=== PATIENT | female | born 1945 | race Caucasian/White ===

== ENCOUNTER 2017-03-23 19:33 | Emergency (ER) | payer MEDICARE, OTHER ==
[~2017-03-23] VITALS: Ht 154.9 cm; Wt 56.0 kg
[~2017-03-23 19:33] MED LIST: BENA40TA PO; DIAZ5 PO; IBUP400 PO; PERC5TAB12 PO
[2017-03-23 19:41] VITALS: BP 140/70; PULSE 88; RESP 22; TEMP 97.6
[2017-03-23] MEDS ORDERED: BENA5TAB PO (19:51)
[2017-03-23] MEDS ORDERED: LORA0.5T PO (19:51)
[2017-03-23] MEDS ORDERED: MORPHINE SULFATE 4 MG/ML INJ IV PUSH ONE (20:00)
[2017-03-23] MEDS ORDERED: SODIUM CHLORIDE 0.9% FLUSH 10 ML FLUSH IVF PRN (20:00)
[2017-03-23] MEDS ORDERED: ONDANSETRON HCL 4 MG/2 ML VIAL IVP ONE (20:00)
--- NOTE | 2017-03-23 20:07 | PD ---
HPI Chief Complaint: Abdominal Pain Time Seen by Provider: 19:44 Travel History International Travel<30 days: No Contact w/Intl Traveler<30days: No Traveled to known affect area: No History of Present Illness HPI 71-year-old female to the emergency department via EMS for evaluation of abdominal pain, syncopal episode, vomiting, diarrhea. Patient reports history of spastic colon, colitis. She states that when she gets stressed out, she has these syncopal episodes. This is not uncommon for her. She states that her son recently . She started having lower abdominal pain approximately 30 minutes after eating. She states that she went to the bathroom at [employer] with her family member. She states she felt like she was going to have a syncopal episode. She states that she did and her family member lowered her to the ground. She denies hitting her head. She denies any headache. No fevers or chills. No chest pain or shortness of breath. Patient reports history of hypertension, depression, anxiety. He denies any previous abdominal surgeries. She states she had 2 large bowel movements. She denies any blood in her stool. She vomited 1. Patient states that normally this happens, she gets pain medication and will feel much better. PFSH Past Medical History Anxiety: Yes Diminished Hearing: No Hypertension: Yes Immunizations Current: Yes ?: Not Menopausal: Yes Past Surgical History Neurologic Surgery: Yes (CERVICAL FUSION C4-T2) Social History Alcohol Use: No Tobacco Use: Yes (/ PPD) Substance Use: No Allergies-Medications (Allergen,Severity, Reaction): Coded Allergies: No Known Allergies (Unverified Allergy, Unknown, 03/23/17) Reported Meds & Prescriptions Reported Meds & Active Scripts Active Reported Benazepril (Benazepril HCl) 5 Mg Tab 5 Mg PO BID Lorazepam 0.5 Mg Tab 0.5 Mg PO DAILY PRN Review of Systems Except as stated in HPI: all other systems reviewed are Neg Physical Exam Narrative GENERAL: Well-nourished, well-developed female patient, afebrile SKIN: Focused skin assessment warm/dry. HEAD: Normocephalic. Atraumatic. EYES: No scleral icterus. No injection or drainage. PERRLA. NECK: Supple, trachea midline. No JVD or lymphadenopathy. CARDIOVASCULAR: Regular rate and rhythm without murmurs, gallops, or rubs. RESPIRATORY: Breath sounds equal bilaterally. No accessory muscle use. Lungs sounds are clear to auscultation. GASTROINTESTINAL: Abdomen soft and nondistended. Patient has lower abdominal tenderness to palpation. MUSCULOSKELETAL: No cyanosis, or edema. Bilateral upper and lower extremities are 5/5. All extremities are neurovascularly intact BACK: Nontender without obvious deformity. No CVA tenderness. Data Data Last Documented VS Vital Signs Date Time Temp Pulse Resp B/P (MAP) Pulse Ox O2 Delivery O2 Flow Rate FiO2 03/23/17 21:57 58 18 104/60 (75) 98 03/23/17 20:46 Room Air 03/23/17 19:41 97.6 Orders Orders Electrocardiogram (03/23/17 19:52) Complete Blood Count With Diff (03/23/17 19:52) Comprehensive Metabolic Panel (03/23/17 19:52) Magnesium (Mg) (03/23/17 19:52) Ckmb (Isoenzyme) Profile (03/23/17 19:52) Troponin I (03/23/17 19:52) Act Partial Throm Time (Ptt) (03/23/17 19:52) Prothrombin Time / Inr (Pt) (03/23/17 19:52) Urinalysis - C+S If Indicated (03/23/17 19:52) Ecg Monitoring (03/23/17 19:52) Iv Access Insert/Monitor (03/23/17 19:52) Oximetry (03/23/17 19:52) Ondansetron Inj (Zofran Inj) (03/23/17 20:00) Sodium Chloride 0.9% Flush (Ns Flush) (03/23/17 20:00) Lipase (03/23/17 19:52) Ct Abd/Pel W Iv Contrast(Rout) (03/23/17 ) Morphine Inj (Morphine Inj) (03/23/17 20:00) Cath For Specimen (03/23/17 21:39) Iohexol 350 Inj (Omnipaque 350 Inj) (03/23/17 22:41) Labs Laboratory Tests Test 03/23/17 20:00 White Blood Count 10.8 TH/MM3 Red Blood Count 3.84 MIL/MM3 Hemoglobin 11.0 GM/DL Hematocrit 33.3 % Mean Corpuscular Volume 86.8 FL Mean Corpuscular Hemoglobin 28.8 PG Mean Corpuscular Hemoglobin Concent 33.2 % Red Cell Distribution Width 13.7 % Platelet Count 177 TH/MM3 Mean Platelet Volume 10.0 FL Neutrophils (%) (Auto) 55.2 % Lymphocytes (%) (Auto) 36.5 % Monocytes (%) (Auto) 5.6 % Eosinophils (%) (Auto) 1.5 % Basophils (%) (Auto) 1.2 % Neutrophils # (Auto) 6.0 TH/MM3 Lymphocytes # (Auto) 4.0 TH/MM3 Monocytes # (Auto) 0.6 TH/MM3 Eosinophils # (Auto) 0.2 TH/MM3 Basophils # (Auto) 0.1 TH/MM3 CBC Comment DIFF FINAL Differential Comment Prothrombin Time 11.1 SEC Prothromb Time International Ratio 1.0 RATIO Activated Partial Thromboplast Time 22.0 SEC Blood Urea Nitrogen 11 MG/DL Creatinine 0.88 MG/DL Random Glucose 105 MG/DL Total Protein 5.0 GM/DL Albumin 2.7 GM/DL Calcium Level 7.5 MG/DL Magnesium Level 1.6 MG/DL Alkaline Phosphatase 54 U/L Aspartate Amino Transf (AST/SGOT) 25 U/L Alanine Aminotransferase (ALT/SGPT) 20 U/L Total Bilirubin 0.3 MG/DL Sodium Level 134 MEQ/L Potassium Level 3.2 MEQ/L Chloride Level 104 MEQ/L Carbon Dioxide Level 18.2 MEQ/L Anion Gap 12 MEQ/L Estimat Glomerular Filtration Rate 64 ML/MIN Total Creatine Kinase 88 U/L Troponin I LESS THAN 0.02 NG/ML Lipase 146 U/L MDM Medical Decision Making Medical Screen Exam Complete: Yes Emergency Medical Condition: Yes Medical Record Reviewed: Yes Interpretation(s) CT abdomen/pelvis - CONCLUSION: Abnormal descending colon with wall thickening and surrounding inflammatory change. These findings are consistent with colitis. This could be secondary to infectious, inflammatory or vascular etiologies. Differential Diagnosis Colitis versus electrolyte abnormality versus dehydration versus syncope versus diverticulitis versus UTI Narrative Course 71-year-old female presents to the emergency department for evaluation of lower abdominal pain, syncopal episode, vomiting, diarrhea. She states she has history of the same. EKG, CBC, CMP, magnesium, CK, troponin, PTT, PT/INR, UA, lipase are ordered and pending. CT abdomen/pelvis with IV contrast is ordered and pending. Patient received normal saline 2 L IV bolus prior to arrival. Patient is given Zofran 4 mg IV, Zofran 4 mg IV. EKG shows sinus rhythm, heart rate 60, no acute ST changes. CBC shows no acute abnormality. CMP shows slight hypokalemia at 3.2, no acute abnormality. Magnesium is 1.6. Lipase is 146. CK is 88. Troponin is less than 0.02. Coags show no acute abnormality. CT abdomen/pelvis shows abnormal descending colon with wall thickening and surrounding inflammatory change. These findings are consistent with colitis. This could be secondary to infectious, inflammatory or vascular etiologies. I discussed the case my attending physician, Dr. Gutierrez. Patient was discharged prescription for Flagyl, Cipro. She also be given a short-term prescription for Lortab for pain. She is instructed to follow-up with her primary care physician. She verbalizes agreement and understanding. The patient was discharged in stable condition with instructions, including return instructions and follow up instructions. Diagnosis Primary Impression: Colitis Referrals: Primary Care Physician call for appointment Patient Instructions: Colitis (ED), General Instructions Additional Instructions: Take antibiotics as directed until gone. Do not drink alcohol while on Flagyl. Take Lortab as instructed as needed for pain. Caution this can make drowsy so do not drive after taking. Follow-up with your primary care physician. Return to the emergency department for any acute worsening of symptoms. Med/Other Pt SpecificInfo: Prescription(s) given Scripts Hydrocodone-Acetaminophen (Lortab) 5-325 Mg Tab 1 TAB PO Q6H Y for PAIN, #12 TAB 0 Refills Prov: May Wright 03/23/17 Ciprofloxacin (Cipro) 500 Mg Tab 500 MG PO BID for Infection for 10 Days, #20 TAB 0 Refills Prov: May Wright 03/23/17 Metronidazole (Flagyl) 500 Mg Tab 500 MG PO TID for Infection for 10 Days, TAB 0 Refills Prov: May Wright 03/23/17 Disposition: 01 DISCHARGE HOME Condition: Stable May Wright Mar 23, 2017 20:07
[2017-03-23 20:46] VITALS: BP 125/57; PULSE 80; RESP 16; O2SAT 97
[2017-03-23 20:50] LABS: BASOPHIL # 0.1 TH/MM3 (0-0.2); BASOPHIL % 1.2 % (0.0-2.0); EOSINOPHIL # 0.2 TH/MM3 (0-0.4); EOSINOPHIL % 1.5 % (0.0-4.0); HEMATOCRIT 33.3 % (35.0-46.0); HEMO FLAGS DIFF FINAL; LYMPH % 36.5 % (9.0-44.0); MEAN CELL VOLUME 86.8 FL (80.0-100.0); MEAN CORPUSCULAR HEMOGLOBIN 28.8 PG (27.0-34.0); MEAN CORPUSCULAR HGB CONC 33.2 % (32.0-36.0); MONO % 5.6 % (0.0-8.0); NEUT % 55.2 % (16.0-70.0); PLATELET COUNT 177 TH/MM3 (150-450); RED BLOOD COUNT 3.84 MIL/MM3 (4.00-5.30); RED CELL DISTRIBUTION WIDTH 13.7 % (11.6-17.2); WHITE BLOOD COUNT 10.8 TH/MM3 (4.0-11.0)
[2017-03-23 21:00] LABS: PROTHROMBIN TIME - PATIENT 11.1 SEC (9.8-11.6)
[2017-03-23 21:21] LABS: ANION GAP 12 MEQ/L (5-15); BICARBONATE 18.2 MEQ/L (21.0-32.0); BLOOD UREA NITROGEN 11 MG/DL (7-18); CHLORIDE 104 MEQ/L (98-107); GLOMERULAR FILTRATION RATE 64 ML/MIN (>89); MAGNESIUM 1.6 MG/DL (1.5-2.5); POTASSIUM 3.2 MEQ/L (3.5-5.1); SODIUM (NA) 134 MEQ/L (136-145)
[2017-03-23 21:22] LABS: ALT (GPT) 20 U/L (10-53); AST (GOT) 25 U/L (15-37)
[2017-03-23 21:25] LABS: ALKALINE PHOSPHATASE 54 U/L (45-117); TOTAL BILIRUBIN ADULT 0.3 MG/DL (0.2-1.0)
[2017-03-23 21:28] LABS: CREATINE KINASE 88 U/L (26-192)
[2017-03-23 21:57] VITALS: BP 104/60; PULSE 58; RESP 18; O2SAT 98
--- NOTE | 2017-03-23 21:58 | PD ---
Physical Exam Date Seen by Provider: Mar 23, 2017 Time Seen by Provider: 21:45 Narrative This patient presents with abdominal pain. Data Data Last Documented VS Vital Signs Date Time Temp Pulse Resp B/P (MAP) Pulse Ox O2 Delivery O2 Flow Rate FiO2 03/23/17 20:46 97 Room Air 03/23/17 20:46 80 16 125/57 (79) 03/23/17 19:41 97.6 Orders Orders Electrocardiogram (03/23/17 19:52) Complete Blood Count With Diff (03/23/17 19:52) Comprehensive Metabolic Panel (03/23/17 19:52) Magnesium (Mg) (03/23/17 19:52) Ckmb (Isoenzyme) Profile (03/23/17 19:52) Troponin I (03/23/17:52) Act Partial Throm Time (Ptt) (03/23/17 19:52) Prothrombin Time / Inr (Pt) (03/23/17 19:52) Urinalysis - C+S If Indicated (03/23/17 19:52) Ecg Monitoring (03/23/17 19:52) Iv Access Insert/Monitor (03/23/17 19:52) Oximetry (03/23/17 19:52) Ondansetron Inj (Zofran Inj) (03/23/17 20:00) Sodium Chloride 0.9% Flush (Ns Flush) (03/23/17 20:00) Lipase (03/23/17 19:52) Ct Abd/Pel W Iv Contrast(Rout) (03/23/17 ) Morphine Inj (Morphine Inj) (03/23/17 20:00) Cath For Specimen (03/23/17 21:39) Labs Laboratory Tests Test 03/23/17 20:00 White Blood Count 10.8 TH/MM3 Red Blood Count 3.84 MIL/MM3 Hemoglobin 11.0 GM/DL Hematocrit 33.3 % Mean Corpuscular Volume 86.8 FL Mean Corpuscular Hemoglobin 28.8 PG Mean Corpuscular Hemoglobin Concent 33.2 % Red Cell Distribution Width 13.7 % Platelet Count 177 TH/MM3 Mean Platelet Volume 10.0 FL Neutrophils (%) (Auto) 55.2 % Lymphocytes (%) (Auto) 36.5 % Monocytes (%) (Auto) 5.6 % Eosinophils (%) (Auto) 1.5 % Basophils (%) (Auto) 1.2 % Neutrophils # (Auto) 6.0 TH/MM3 Lymphocytes # (Auto) 4.0 TH/MM3 Monocytes # (Auto) 0.6 TH/MM3 Eosinophils # (Auto) 0.2 TH/MM3 Basophils # (Auto) 0.1 TH/MM3 CBC Comment DIFF FINAL Differential Comment Prothrombin Time 11.1 SEC Prothromb Time International Ratio 1.0 RATIO Activated Partial Thromboplast Time 22.0 SEC Blood Urea Nitrogen 11 MG/DL Creatinine 0.88 MG/DL Random Glucose 105 MG/DL Total Protein 5.0 GM/DL Albumin 2.7 GM/DL Calcium Level 7.5 MG/DL Magnesium Level 1.6 MG/DL Alkaline Phosphatase 54 U/L Aspartate Amino Transf (AST/SGOT) 25 U/L Alanine Aminotransferase (ALT/SGPT) 20 U/L Total Bilirubin 0.3 MG/DL Sodium Level 134 MEQ/L Potassium Level 3.2 MEQ/L Chloride Level 104 MEQ/L Carbon Dioxide Level 18.2 MEQ/L Anion Gap 12 MEQ/L Estimat Glomerular Filtration Rate 64 ML/MIN Total Creatine Kinase 88 U/L Troponin I LESS THAN 0.02 NG/ML Lipase 146 U/L MDM Supervised Visit with [facility]: Yes Narrative Course I, Dr. Gutierrez, have reviewed the advance practice practitioner's documentation and am in agreement, met with the patient face to face, made the diagnosis, and the medical decision making was done by me. *My assessment and Findings: Abdomen is soft and nontender. Please see May Wright NP's note for laboratory and radiology results, final diagnosis and disposition Melanie Gutierrez MD Mar 23, 2017 21:58
[2017-03-23] MEDS ORDERED: IOHEXOL 350 MG/ML 10 ML VIAL (for RAD DIAG) IVCONTRAST ONE (22:41)
--- NOTE | 2017-03-23 22:51 | RADRPT ---
EXAM DATE/TIME: 03/23/2017 22:37 [facility] COMPARISON: No previous studies available for comparison. INDICATIONS : Abdominal pain and nausea. IV CONTRAST: 71 cc Omnipaque 350 (iohexol) IV ORAL CONTRAST: No oral contrast ingested. RADIATION DOSE: 5.17 CTDIvol (mGy) MEDICAL HISTORY : Hypertension. SURGICAL HISTORY : None. ENCOUNTER: Initial ACUITY: 1 day PAIN SCALE: 7/10 LOCATION: Bilateral abdomen TECHNIQUE: Volumetric scanning of the abdomen and pelvis was performed. Using automated exposure control and adjustment of the mA and/or kV according to patient size, radiation dose was kept as low as reasonably achievable to obtain optimal diagnostic quality images. DICOM format image data is av ailable electronically for review and comparison. FINDINGS: LOWER LUNGS: The visualized lower lungs are clear. LIVER: Homogeneous density without lesion. There is no dilation of the biliary tree. No calcifi ed gallstones. Gallbladder appears unremarkable. SPLEEN: Normal size without lesion. PANCREAS: Within normal limits. KIDNEYS: Normal in size and shape. There is no mass, stone or hydronephrosis. ADRENAL GLANDS: Within normal limits. VASCULAR: There is no aortic aneurysm. BOWEL/MESENTERY: No oral contrast was given limiting the sensitivity. The descending colon is abn ormal in appearance with apparent bowel wall thickening and mild surrounding inflammatory change. No diverticuli are identified. The more proximal colon appears unremarkable. The terminal ileum is withi n normal limits. There is no free intraperitoneal air or fluid. ABDOMINAL WALL: Within normal limits. RETROPERITONEUM: There is no lymphadenopathy. BLADDER: No wall thickening or mass. REPRODUCTIVE: Within normal limits. INGUINAL: There is no lymphadenopathy or hernia. MUSCULOSKELETAL: Within normal limits for patient age. CONCLUSION: Abnormal descending colon with wall thickening and surrounding inflammatory change. T hese findings are consistent with colitis. This could be secondary to infectious, inflammatory or vas cular etiologies. Vincent Hess MD on March 23, 2017 at 22:44 Board Certified Radiologist. This report was verified electronically.
[2017-03-23] MEDS ORDERED: METR-1 PO (23:08)
[2017-03-23] MEDS ORDERED: CIPR-9 PO (23:08)
[2017-03-23] MEDS ORDERED: HYDR-3533 PO (23:08)
[2017-03-23] MEDS ORDERED: POTASSIUM CHLORIDE 20 MEQ CONTROLLED RELEASE TAB PO ONE (23:15)
--- NOTE | 2017-03-24 13:20 | EKG ---
Date Performed: 03/23/2017 Time Performed: 20:52:56 PTAGE: 71 years EKG: Sinus rhythm NORMAL ECG NO PREVIOUS TRACING DOCTOR: Ramon Cifuentes Interpretating Date/Time 03/24/2017 13:15:42
== END 2017-03-24 00:09 | disposition home or self-care (01) ==
LOC: NEPE 19:33
DX: K52.9 Noninfective gastroenteritis and colitis, unspecified (principal); E87.6 Hypokalemia; R55 Syncope and collapse; R11.10 Vomiting, unspecified; R19.7 Diarrhea, unspecified; F41.9 Anxiety disorder, unspecified; I10 Essential (primary) hypertension; F17.200 Nicotine dependence, unspecified, uncomplicated; Z79.899 Other long term (current) drug therapy
CPT/HCPCS: 74177; 80053; 82550; 83690; 83735; 84484; 85025; 85610; 85730; 93005; 96374; 96375; 99285; J2270; J2405; Q9967